=== PATIENT | female | born 1995 | race Asian ===

== ENCOUNTER 2019-07-07 11:17 | Emergency (ER) | payer OTHER ==
--- NOTE | 2019-07-07 11:51 | ED ---
Throat Pain/Nasal Congestion - HPI Summary HPI Summary: This patient is a 24-year-old otherwise healthy female presenting to the ED with right lower jaw pain. Patient states symptoms have been present 2 days. She has used one ibuprofen without relief. She has also been using azithromycin 3 days without relief. She has had her wisdom teeth extracted, however no other dental pain, trauma or other concerns. Patient bleach she may have some swelling to the right lower cheek. She is able to open and close her jaw, however with some discomfort. She does not have a local dentist. Denies fevers, sweats, chills. - History of Current Complaint Chief Complaint: EDDentalPain Time Seen by Provider: 07/07/19 11:35 Onset/Duration: Sudden Onset Severity: Moderate Associated Signs And Symptoms: Positive: Negative - Epiglottits Risk Factors Epiglottis Risk Factors: Negative - Allergies/Home Medications Allergies/Adverse Reactions: Allergies Allergy/AdvReac Type Severity Reaction Status Date / Time Penicillins Allergy Unknown Verified 07/07/19 11:21 Reaction Details Home Medications: Home Medications Clindamycin Cap(NF) [Clindamycin Cap 300 mg Cap(NF)] 300 mg PO Q6H #20 cap 07/07 [Rx] traMADol TAB* [Ultram*] 50 mg PO Q8H PRN #12 tab MDD 3 07/07/19 [Rx] PMH/Surg Hx/FS Hx/Imm Hx Previously Healthy: Yes - Immunization History Hx Pertussis Vaccination: No Immunizations Up to Date: Yes Infectious Disease History: No Infectious Disease History: Denies: Traveled Outside the [place] in Last 30 Days - Social History Occupation: Employed Part-time Lives: With Family Alcohol Use: None Hx Substance Use: No Substance Use Type: Reports: None Hx Tobacco Use: No Smoking Status (MU): Never Smoked Tobacco Review of Systems Negative: Fever, Chills, Fatigue, Skin Diaphoresis Positive: Dental Pain - right lower dental pain Negative: Palpitations, Chest Pain Negative: Shortness Of Breath, Cough Genitourinary: Negative Positive: no symptoms reported, see HPI Negative: Arthralgia, Myalgia Skin: Negative Neurological/Mental Status: Negative All Other Systems Reviewed And Are Negative: Yes Physical Exam Triage Information Reviewed: Yes Vital Signs On Initial Exam: Initial Vitals Temp Pulse Resp BP Pulse Ox 98.2 F 93 16 132/98 99 07/07/19 11:19 07/07/19 11:19 07/07/19 11:19 07/07/19 11:19 07/07/19 11:19 Vital Signs Reviewed: Yes Appearance: Positive: Well-Appearing, Well-Nourished Skin: Positive: Warm, Skin Color Reflects Adequate Perfusion Head/Face: Positive: Normal Head/Face Inspection Eyes: Positive: EOMI, CANDICE, Conjunctiva Clear Dental: Positive: Other - dental pain tooth #30 and #31 Neck: Positive: Supple, No Lymphadenopathy Respiratory/Lung Sounds: Positive: Clear to Auscultation, Breath Sounds Present Cardiovascular: Positive: Normal, RRR, Pulses are Symmetrical in both Upper and Lower Extremities Musculoskeletal: Positive: Normal, Strength/ROM Intact Neurological: Positive: Speech Normal Psychiatric: Positive: Normal, Affect/Mood Appropriate AVPU Assessment: Alert Procedures - Sedation Patient Received Moderate/Deep Sedation with Procedure: No Diagnostics - Vital Signs Vital Signs Temp Pulse Resp BP Pulse Ox 07/07/19 11:19 98.2 F 93 16 132/98 99 - Laboratory Lab Statement: Any lab studies that have been ordered have been reviewed, and results considered in the medical decision making process. EENT Course/Dx - Course Course Of Treatment: No dental abscess or lesions seen over area of concern. Pain is located over tooth # 30 and #31/ No obvious dental caries, cavities, crowding or broken teeth. [place] teeth have been extracted. Pain on palpation over mandible. No TMJ tenderness. Some pain with opening and closing mouth. Will treat for possible dental infection/abscess based on symptoms of pain and radiation to jaw and ear. No allergies. Will treat with Penicillin. Patient to follow up immediately with dentist. Tramadol three times daily for pain. - Diagnoses Provider Diagnoses: Pain, dental Discharge ED - Sign-Out/Discharge Documenting (check all that apply): Patient Departure - Discharge Plan Condition: Stable Disposition: HOME Prescriptions: Clindamycin Cap(NF) [Clindamycin Cap 300 mg Cap(NF)] 300 mg PO Q6H #20 cap traMADol TAB* [Ultram*] 50 mg PO Q8H PRN #12 tab MDD 3 PRN Reason: Pain Patient Education Materials: Toothache (ED) Referrals: No Primary Care Phys,NOPCP [Primary Care Provider] - Additional Instructions: You have been diagnosed with dental pain with possible infection: Antibiotics as prescribed to you. Clindamycin four times daily x 5 days. To minimize the potential for gastrointestinal intolerance, Clindamycin should be taken at the start of a meal. If you have any questions about your medication, please contact us or ask your pharmacist. Salt water rinses several times per day will improve healing time. Ibuprofen 600mg four times daily with meals for discomfort. Tylenol 650mg four times daily for pain Use these medications intermittently For pain not well controlled with ibuprofen, take the tramadol three times daily May use over the counter ambesol or clove oil for discomfort Follow up with a dentist for routine care to prevent recurrence of infections. Please follow up with dentist - call tomorrow to make an appointment Keep ice to the area for comfort - Billing Disposition and Condition Condition: STABLE Disposition: Home - Attestation Statements Provider Attestation: I was available for consult. This patient was seen by the PHILLIP. The patient was not presented to, seen by, or examined by me. Tristen Figueroa MD
[2019-07-07 11:55] VITALS: BP 118/85
== END 2019-07-07 11:54 | disposition home or self-care (01) ==
LOC: ED 11:17
DX: K08.89 Other specified disorders of teeth and supporting structures (principal); R68.84 Jaw pain; Z88.0 Allergy status to penicillin
CPT/HCPCS: 99281